=== PATIENT | male | born 1930 | race Caucasian/White ===

== ENCOUNTER 2019-02-06 20:41 | Observation (INO) | payer BC, MEDICARE ==
[2019-02-06] MEDS ORDERED: TOPICAL LIDOCAINE W/ EPI 5 ML TOP ONE (20:59)
--- NOTE | 2019-02-06 21:02 | Emergency Department Record ---
History of Present Illness - General Chief Complaint: Fall Injury Stated Complaint: FALL INJURY Time Seen by Provider: 02/06/19 20:59 Source: Patient, Family Mode of Arrival: Ambulatory Limitations: No limitations - History of Present Illness Initial Comments: 88 yo male presents after a fall in his home. No syncope or LOC. He presents with a frontal forehead laceration. He is not on any blood thinners. His son reports the patient lives alone. He has chronic balance issues with other falls. No other recent confusion, vomiting, diarrhea, confusion, weight changes. His PCP is in [place]. In the fall he was admitted and then spent time in rehabilitation then an assisted living but he is back home. MD Complaint: Fall -: Minutes(s) Fall From: Standing When Fall Occurred: Just prior to arrival Fall Witnessed: No Place Fall Occurred: Home Loss of Consciousness: None Prolonged Down Time?: No Symptoms Prior to Fall: None Location: Head Severity: Mild Quality: Aching Context: Other Associated Symptoms: Denies - [place] Coma Scale Eye Response: (4) Open spontaneously Motor Response: (6) Obeys commands Verbal Response: (5) Oriented Kimberly Total: 15 - Related Data Home Medications Medication Instructions Recorded Confirmed Last Taken Clopidogrel Bisulfate [Clopidogrel] 75 mg PO DAILY 02/06/19 02/06/19 Unknown Metoprolol Succinate [Toprol Xl] 25 mg PO DAILY 02/06/19 02/06/19 Unknown Omeprazole [Prilosec] 20 mg PO BID 02/06/19 02/06/19 Unknown Oxybutynin Chloride [Ditropan] 5 mg PO DAILY 02/06/19 02/06/19 Unknown Silodosin 1 cap PO DAILY 02/06/19 02/06/19 Unknown Tiotropium [place] [Spiriva] 1 inh IH DAILY 02/06/19 02/06/19 Unknown Allergies Allergy/AdvReac Type Severity Reaction Status Date / Time No Known Drug Allergies Allergy Verified 02/06/19 21:11 Review of Systems Constitutional: Denies: Chills, Fever, Malaise, Weakness Eyes: Denies: Eye discharge ENT: Denies: Congestion, Throat pain Respiratory: Denies: Cough, Dyspnea Cardiovascular: Denies: Chest pain, Palpitations, Syncope Endocrine: Denies: Fatigue Gastrointestinal: Denies: Abdominal pain, Diarrhea, Nausea, Vomiting Genitourinary: Denies: Dysuria, Frequency, Hematuria Musculoskeletal: Denies: Arthralgia, Back pain, Joint swelling, Myalgia Skin: Reports: Other. Denies: Bruising, Change in color, Rash Neurological: Denies: Headache, Numbness, Vertigo, Weakness Psychiatric: Denies: Anxiety Hematological/Lymphatic: Denies: Easy bleeding, Easy bruising Physical Exam - General General Appearance: Alert, Oriented x3, Cooperative, No acute distress Limitations: No limitations - Head Head exam: negative: Atraumatic, Normal inspection Head exam detail: Contusion, Laceration Image of Face/Head: 1 - 2cm laceration - Eye Eye exam: Normal appearance, PERRL. negative: Conjunctival injection, Scleral icterus - ENT ENT exam: Normal exam Ear exam: Normal external inspection Nasal Exam: Normal inspection Mouth exam: Normal external inspection - Neck Neck exam: Normal inspection, Full ROM. negative: Tenderness - Respiratory Respiratory exam: Normal lung sounds bilaterally. negative: Accessory muscle use, Chest wall tenderness, Decreased breath sounds, Respiratory distress - Cardiovascular Cardiovascular Exam: Regular rate, Normal rhythm, Normal heart sounds Peripheral Pulses: 2+: Radial (R), Radial (L) - GI/Abdominal GI/Abdominal exam: Soft, Normal bowel sounds. negative: Tenderness - Rectal Rectal exam: Deferred - exam: Deferred - Extremities Extremities exam: Normal inspection, Full ROM, Normal capillary refill. nega tive: Tenderness - Back Back exam: Reports: Full ROM. Denies: CVA tenderness (R), CVA tenderness (L), Muscle spasm, Tenderness, Vertebral tenderness - Neurological Neurological exam: Alert, CN II-XII intact, Oriented X3. negative: Altered, Motor sensory deficit - Psychiatric Psychiatric exam: Normal affect, Normal mood. negative: Agitated, Anxious - Skin Skin exam: Normal color, Warm. negative: Intact Type of lesion: abrasion, Laceration Course Vital Signs 02/06/19 20:43 Temperature 97.6 F Pulse Rate [ 73 Pulse Ox Probe] Respiratory 20 Rate Blood Pressure 176/74 [Left Arm] Pulse Ox 93 L - Reevaluation(s) Reevaluation #1: 02/06/19 21:[address] scanner is not operational The patient will be transported for CT scans at [facility] It was discovered he is on Plavix Trauma Alert activated. Procedure: 2.5 cm laceration of the forehead Wound was cleaned and prepped in sterile fashion, no residual FB identified on examination. The wound was copiously irrigated with NS Wound was anesthetized with 3 mL of 1% Lidocaine with epinephrine The laceration was repaired with 6 sutures in interrupted fashion. Prolene 5-0. Patient tolerated the procedure well without complications. We discussed home care, reasons for immediate return if any concerns, and suture removal in 7 days 02/06/19 22:01 [facility] called again for transfer for HCT 02/07/19 00:30 The patient has returned from [facility] He was rechecked. No changes in his clinical condition. Alert [facility] radiology was contacted to obtain the report of the CT scans as they were not sent with the patient 02/07/19 00:40 The patient is a fall risk and I recommend observation after his fall on plavix with a head injury The patient and son are in agreement at this time PT will be consulted as well 02/07/19 01:18 Medical Decision Making - Lab Data Result diagrams: 02/06/19 21:42 02/06/19 21:42 Disposition Disposition: Admit Clinical Impression: Falls frequently, Renal insufficiency Scalp laceration Qualifiers: Encounter type: initial encounter Qualified Code(s): S01.01XA - Laceration without foreign body of scalp, initial encounter Head injury Qualifiers: Encounter type: initial encounter Qualified Code(s): S09.90XA - Unspecified injury of head, initial encounter Disposition: Still a Patient at [facility] Decision to Admit: Admit from ER Decision to Admit Date: 02/07/19 Decision to Admit Time: 00:41 Condition: (2) Stable Forms: Patient Portal Access Time of Disposition: 00:41 Quality - Quality Measures Quality Measures: N/A - Blood Pressure Screening Does Patient Have Any of the Following: Active Dx of HTN Blood Pressure Classification: Hypertensive Reading Systolic Measurement: 176 Diastolic Measurement: 74 Screening for High Blood Pressure: Patient Exclusion, Hx of HTN [[id number]]
[2019-02-06 21:49] LABS: ABSOLUTE NEUTROPHIL COUNT 3.02; BASO % 0.4 % (0-6); EOS % 6.3 % (0-6); GRAN % 61.1 % (47-80); HEMATOCRIT 41.1 % (42.0-52.0); HEMOGLOBIN 13.7 gm/dl (14.0-18.0); LYMPH % 24.3 % (16-45); MEAN CELL VOLUME 94.3 fl (81-97); MEAN CORPUSCULAR HEMOGLOBIN 31.4 pg (27-33); MEAN CORPUSCULAR HGB CONC 33.3 g/dl (32-36); MEAN PLATELET VOLUME 9.4 fl (7.4-10.4); MONO % 7.9 % (0-9); PLATELET COUNT 153 K/uL (130-400); RED BLOOD COUNT 4.36 M/uL (4.40-5.70); RED CELL DISTRIBUTION WIDTH 14.2 % (11.5-14.5); WHITE BLOOD COUNT W/O DIFF 4.9 K/uL (4.2-12.2)
[2019-02-06 22:02] LABS: CREATININE 1.5 mg/dL (0.7-1.2); INR 1.1; PARTIAL THROMBOPLASTIN TIME 27.8 SECONDS (24.5-39.1); PROTHROMBIN TIME (PATIENT) 10.9 SECONDS (9.5-12.1)
[2019-02-07 00:34] LABS: URINE BILIRUBIN NEGATIVE (NEGATIVE); URINE BLOOD NEGATIVE (NEGATIVE); URINE GLUCOSE (UA) NEGATIVE (NEGATIVE); URINE KETONE NEGATIVE (NEGATIVE); URINE LEUKOCYTE ESTERASE NEGATIVE (NEGATIVE); URINE NITRITE NEGATIVE (NEGATIVE); URINE PROTEIN TRACE (NEGATIVE); URINE UROBILINOGEN 0.2 E.U./dL (0.20 - 1.00)
[2019-02-07 00:35] LABS: URINE APPEARANCE CLEAR; URINE COLOR YELLOW
[2019-02-07] MEDS ORDERED: Diph,Pert(Acell),Tet Vac 0.5 ML SYR IM ONE (01:18)
[2019-02-07] MEDS ORDERED: ACETAMINOPHEN 500 MG TABLET PO PRN (01:32)
[2019-02-07] MEDS ORDERED: 0.9 % SODIUM CHLORIDE 1000ML 1,000 ML IV PRN (01:32)
[2019-02-07] MEDS ORDERED: PANTOPRAZOLE SODIUM 40 MG TABLET PO SCH (07:00)
--- NOTE | 2019-02-07 09:01 | History & Physical ---
History of Present Illness - Date of Service Date of Service for History & Physical: 02/07/19 - History of Present Illness Admitting Diagnosis: Falls, Fall on Plavix, Weak, renal insufficiency, Head Injury History of Present Illness: Mr. Marques is a 88 y/o male with presentation after a fall at home. The patient says that he was getting up from his recliner and was reaching for his walker but he felt weak in the legs and fell forward hitting his head. He says he has fallen a few times at home and was most recently in rehab but wanted to go home. He says that he lives alone and does almost everything for himself. He says he has three sons who live nearby and help him with some things. The patient had a laceration of the forehead over the right eye but did not sustain any other injury after falling. CT head w/o contrast did not reveal any acute intracranial injury. Labs were within normal limits. He is admitted for neurochecks and evaluation by physical and occupational therapy. Travel Screening - Travel/Exposure Within Last 30 Days Have you traveled within the last 30 days?: No - Travel/Exposure Within Last Year Have you traveled outside the [place] in the last year?: No - Additonal Travel Details Have you been exposed to anyone with a communicable illness?: No - Travel Symptoms Symptom Screening: None Review of Systems Constitutional: Denies: Chills, Fever, Malaise, Weakness Eyes: Denies: Eye discharge ENT: Denies: Congestion, Throat pain Respiratory: Denies: Cough, Dyspnea Cardiovascular: Denies: Chest pain, Palpitations, Syncope Endocrine: Denies: Fatigue Gastrointestinal: Denies: Abdominal pain, Diarrhea, Nausea, Vomiting Genitourinary: Denies: Dysuria, Frequency, Hematuria Musculoskeletal: Denies: Arthralgia, Back pain, Joint swelling, Myalgia Skin: Reports: Other. Denies: Bruising, Change in color, Rash Neurological: Denies: Headache, Numbness, Vertigo, Weakness Psychiatric: Denies: Anxiety Hematological/Lymphatic: Denies: Easy bleeding, Easy bruising Past Medical History - SOCIAL HISTORY Smoking Status: Former smoker Alcohol Use: None Drug Use: None - RESPIRATORY Hx Respiratory Disorders: Yes Hx COPD: Yes - CARDIOVASCULAR Hx Cardio Disorders: Yes Hx Hypertension: Yes Comment:: PVD - NEURO Hx Neuro Disorders: Yes Hx Dizziness: Yes Comment:: Balance problems - GI Hx GI Disorders: Yes Hx Obstructive Bowel: Yes - Hx Genitourinary Disorders: Yes Hx Bladder Problem: Yes - ENDOCRINE Hx Endocrine Disorders: No - MUSCULOSKELETAL Hx Musculoskeletal Disorders: Yes Hx Arthritis: Yes - PSYCH Hx Psych Problems: No - HEMATOLOGY/ONCOLOGY Hx Hematology/Oncology Disorders: No Family Medical History Any Significant Family History?: Yes Hx Dementia: Brother/Sister H&P Meds/Allergies - Allergies Allergies: Allergies Allergy/AdvReac Type Severity Reaction Status Date / Time No Known Drug Allergies Allergy Verified 02/06/19 21:11 - Home Medications Home Medications Medication Instructions Recorded Confirmed Last Taken Clopidogrel Bisulfate [Clopidogrel] 75 mg PO DAILY 02/06/19 02/06/19 Unknown Metoprolol Succinate [Toprol Xl] 25 mg PO DAILY 02/06/19 02/06/19 Unknown Omeprazole [Prilosec] 20 mg PO BID 02/06/19 02/06/19 Unknown Oxybutynin Chloride [Ditropan] 5 mg PO DAILY 02/06/19 02/06/19 Unknown Silodosin 1 cap PO DAILY 02/06/19 02/06/19 Unknown Tiotropium [place] [Spiriva] 1 inh IH DAILY 02/06/19 02/06/19 Unknown - Active Medications Active Medications: Current Medications Acetaminophen (Tylenol 500mg Tab) 1,000 mg PO Q6H PRN PRN Reason: PAIN - MILD(1-4)/FEVER Sodium Chloride () 1,000 mls @ 100 mls/hr IV .Q10H PRN PRN Reason: LARGE VOLUME IV Last Admin: 02/07/19 02:14 Dose: 100 mls/hr Documented by: Metoprolol Succinate (Toprol Xl) 12.5 mg PO DAILY [place] Non-Formulary Misc (Silodosin [Rapaflo ] 1 Cap) 1 cap PO DAILY [place] Oxybutynin Chloride (Ditropan) 5 mg PO QHS [place] Pantoprazole Sodium (Protonix) 40 mg PO BIDAC [place] Last Admin: 02/07/19 06:19 Dose: 40 mg Documented by: Physical Exam - Vital Signs Vital Signs: Vital Signs - Last 24 Hrs Temp Pulse Pulse Resp BP BP Pulse Ox 02/07/19 08:00 97.5 F L 68 17 166/65 96 02/07/19 01:32 97.6 F 90 16 157/83 96 02/07/19 01:30 97.5 F L 73 18 173/82 96 02/06/19 20:43 97.6 F 73 20 176/74 93 L - General General Appearance: Alert, Oriented x3, Cooperative, No acute distress Limitations: No limitations - Head Head exam: negative: Atraumatic, Normal inspection Head exam detail: Contusion, Laceration - Eye Eye exam: Normal appearance, PERRL. negative: Conjunctival injection, Scleral icterus - ENT ENT exam: Normal exam Ear exam: Normal external inspection Nasal Exam: Normal inspection Mouth exam: Normal external inspection - Neck Neck exam: Normal inspection, Full ROM. negative: Tenderness - Respiratory Respiratory exam: Normal lung sounds bilaterally. negative: Accessory muscle use, Chest wall tenderness, Decreased breath sounds, Respiratory distress - Cardiovascular Cardiovascular Exam: Regular rate, Normal rhythm, Normal heart sounds Peripheral Pulses: 2+: Radial (R), Radial (L) - GI/Abdominal GI/Abdominal exam: Soft, Normal bowel sounds. negative: Tenderness - Rectal Rectal exam: Deferred - exam: Deferred - Extremities Extremities exam: Normal inspection, Full ROM, Normal capillary refill. negative: Tenderness - Back Back exam: Reports: Full ROM. Denies: CVA tenderness (R), CVA tenderness (L), Muscle spasm, Tenderness, Vertebral tenderness - Neurological Neurological exam: Alert, CN II-XII intact, Oriented X3. negative: Altered, Motor sensory deficit - Psychiatric Psychiatric exam: Normal affect, Normal mood. negative: Agitated, Anxious - Skin Skin exam: Normal color, Warm. negative: Intact Type of lesion: abrasion, Laceration Results - Labs Result Diagrams: 02/06/19 21:42 02/06/19 21:42 Labs Last 24 Hours: Laboratory Results - last 24 hr 02/06/19 02/06/19 02/06/19 21:42 21:42 21:42 WBC 4.9 RBC 4.36 L Hgb 13.7 L Hct 41.1 L MCV 94.3 MCH 31.4 MCHC 33.3 RDW 14.2 Plt Count 153 MPV 9.4 Gran % 61.1 Lymphocytes % 24.3 Monocytes % 7.9 Eosinophils % 6.3 H Basophils % 0.4 Absolute Neutrophils 3.02 PT 10.9 INR 1.1 APTT 27.8 Sodium 138 Potassium 4.7 H Chloride 104 Carbon Dioxide 22.0 Anion Gap 12.0 BUN 39 H Creatinine 1.5 H Estimated GFR 47 Random Glucose 134 H Calcium 9.1 Urine Color Urine Appearance Urine pH Ur Specific [place] Urine Protein Urine Glucose (UA) Urine Ketones Urine Blood Urine Nitrite Urine Bilirubin Urine Urobilinogen Ur Leukocyte Esterase Ethyl Alcohol 0.000 02/07/19 00:30 WBC RBC Hgb Hct MCV MCH MCHC RDW Plt Count MPV Gran % Lymphocytes % Monocytes % Eosinophils % Basophils % Absolute Neutrophils PT INR APTT Sodium Potassium Chloride Carbon Dioxide Anion Gap BUN Creatinine Estimated GFR Random Glucose Calcium Urine Color Yellow Urine Appearance Clear Urine pH 6.0 Ur Specific [place] 1.010 Urine Protein Trace H Urine Glucose (UA) Negative Urine Ketones Negative Urine Blood Negative Urine Nitrite Negative Urine Bilirubin Negative Urine Urobilinogen 0.2 Ur Leukocyte Esterase Negative Ethyl Alcohol VTE H&P Assessment - Risk for VTE Risk for VTE: Yes Risk Level: Moderate Risk Assessment Date: 02/07/19 Risk Assessment Time: 09:02 VTE Orders Placed or Will Be Placed: Yes Plan - Detailed Diagnosis and Plan (1) Falls frequently Current Visit: Yes Status: Acute Base Code: R29.6 - REPEATED FALLS Comment: 02/07/19: - Mechanical fall at home 2/2 weakness/gait instability. - Ambulates with walker at home. - PT/OT consult pending. - Fall precuations with bed alarm. (2) Head injury Current Visit: Yes Status: Acute Qualifiers: Encounter type: initial encounter Qualified Code(s): S09.90XA - Unspecified injury of head, initial encounter Base Code: S09.90XA - UNSPECIFIED INJURY OF HEAD, INITIAL ENCOUNTER Comment: 02/07/19: - Supericial head injury 2/2 to fall. - CT head w/o contrast: negative for acute intracranial pathology. - 6 stitches placed over laceration. (3) Renal insufficiency Current Visit: Yes Status: Acute Base Code: N28.9 - DISORDER OF KIDNEY AND URETER, UNSPECIFIED Comment: 02/07/19: - Bun/Cr, 39/1.5 GFR: 47 - Baseline not known. - Follow up with outpatient labs. (4) Hypertension Current Visit: Yes Status: Acute Base Code: I10 - ESSENTIAL (PRIMARY) HYPERTENSION Comment: 02/07/19: - Not well controlled. - Resume Metoprolol 12.5mg QD. (5) BPH (benign prostatic hyperplasia) Current Visit: Yes Status: Acute Base Code: N40.0 - BENIGN PROSTATIC HYPERPLASIA WITHOUT LOWER URINRY TRACT SYMP Comment: 02/07/19: - Resume Silodosin and Oxybutinin. (6) DVT prophylaxis Current Visit: Yes Status: Acute Base Code: Z29.9 - ENCOUNTER FOR PROPHYLACTIC MEASURES, UNSPECIFIED Comment: 02/07/19: - Ambulation and SCDs while in bed. - Hold Lovenox due to risk of falls. (7) Full code status Current Visit: Yes Status: Acute Base Code: Z78.9 - OTHER SPECIFIED HEALTH STATUS Comment: 02/07/19: - Pt is full code.
--- NOTE | 2019-02-07 09:46 | Rehab Evaluation ---
Patient Information - Patient Information Diagnosis: Falls, Falls on Plavix, Weak, Renal Insufficiency, Head Injury Ordered Treatment: PT Evaluate and Treat Status: Initial Evaluation Surgery: No Past Medical/Surgical Hx: PAST MEDICAL/SURGICAL HISTORY Past Surgical History R hip replacement; Bowel surgery for blockage; Prostate surgery PMH - Respiratory Hx Respiratory Disorders Yes Hx Chronic Obstructive Yes Pulmonary Disease (COPD) PMH - Cardiovascular Hx Cardiovascular Disorders Yes Hx Hypertension Yes Comment: PVD PMH - Neuro Hx Neurological Disorders Yes Hx Dizziness Yes Comment: Balance problems PMH - GI Hx Gastrointestinal Disorders Yes Hx Obstructive Bowel Yes PMH - Hx Genitourinary Disorders Yes Hx Bladder Problem Yes PMH - Endocrine Hx Endocrine Disorders No PMH - Musculoskeletal Hx Musculoskeletal Disorders Yes Hx Arthritis Yes PMH - Psych Hx Psychiatric Problems No PMH - Hematology/Oncology Hx Hematology/Oncology No Disorders Premorbid Status: Detail (Patient reports that he has not been driving for years. Patient also reports that he has a 2-wheeled walker and rollator at home that he regularly uses. Patient reports that he uses oxygen for long walking distances, but does not frequently need to use it.) Social History: Detail (Patient lives alone in one story home. Patient reports that he only has 1 step to enter the home with bilateral grab bars. Patient reports that he does have a basement but has not used it for years in fear of falling. Patient reports that he has a walk in shower with grab bars. Patient also reports that he has a raised toilet seat with grab bars. At home patient reports that he is independent with ADL's such as laundry, dishes, and mowing the lawn. Patient did state that he receives meals on wheels and has a house keeper visit every 2 weeks to help with the home. His sons frequently visit throughout the day and visit in the morning and afternoon.) - Time With Patient Total Time Spent With Patient (Min): 35 Treatment Procedures: Detail (Initial evaluation; low complexity) Subjective Information - Subjective Information Per Patient (Patient did not report any pain. After ambulating in the hallways patient reported feeling lightheaded.) Objective Data - Mental Status Patient Orientation: Oriented x3 - ROM Not within normal limits (Patient's upper extremities and lower extremities were assessed. Patient showed decreased active range of motion in shoulder flexion and abduction, lacking approximately 30 degrees. Passively patient was assessed and was determined to have a firm end-feel indicating possible muscular tightness preventing full range.) - Strength/Tone Not within normal limits (Patient's upper and lower extremities were assessed with manual muscle testing. 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 In lower extremities, patient was determined to have 4/5 strength in right hip flexion, 4/5 strength in bilateral hip adduction, and 3+/5 strength in right great toe extension.) - Coordination Deficit (Patient's upper extremity finger dexterity was assessed and was found to have difficulty bringing 3rd and 4th finger to thumb.) - Bed Mobility Independent (Patient was assessed in transfering from supine to R EOB and back. Patient required use of hospital grab bars but was able to complete transfer with supervision x1.) - Transfers Dependent (Patient completed sit to stand transfer from R EOB using 2-wheeled walker for support with minimal assistance x1. Patient required multiple attempts prior to completing transfer. When transfering from standing to sitting R EOB, patient used 2-wheeled walker for support and required minimal assistance x1 for guidance of descent due to patient showing decreased ability to e ccentrically control movement.) - Balance Balance Standing: Poor (Patient demonstrates increased posterior lean and increased weight bearing through heels rather than distributing throughout the whole foot. Patient was assessed using Tinetti Balance Assessment Tool. Patient scored 2/16 in the balance section and scored a 0 in the sections of sit to stand requiring help, unsteady with immediate standing, inability to maintain balance with anterior and lateral perturbations with falling posteriorly, unable to stand with eyes closed for 10 seconds, sitting down unsafely. Patient was not assessed turning 360 degrees due to it being deemed unsafe. Patient was scored 6/12 in gait section and scored 0 for step length and height, increased trunk sway, and walking with heels apart. Overall score was determined to be 8/28 indicating that patient is at high risk for falls.) - Sensation Deficit (Patient indicated deficit of sensation on medial and lateral mcpherson, lateral and dorsal aspect of foot, and dorsal aspect of toes. 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 Patient demonstrated increased weight bearing through the heels and did not fully complete toe-push off during pre-swing phase of gait. Patient demonstrated increased posterior lean throughout ambulation and increased shortness of breath with significant wheezing throughout ambulation. Upon return to room patient was instructed on pursed-lip breathing with deeper breaths.) Therapy Assessment - Therapy Assessment Detail (Patient was assessed for bed mobility and required supervision assistance only. During sit to stand transfers patient required minimal assistance x1. Patient ambulated total of 80 feet using 2-wheeled walker with CGAx1 and demonstrated increased weight bearing on heels without push off on great toe during pre-swing phase of ambulation. Patient demonstrated significant shortness of breath and wheezing throughout ambulation and reported that he felt lightheaded after ambulation. Patient then was assessed strength tyler and was found to have impairments in strength of bilateral graip, hip adduction, hip f lexion, and great toe extension. Patient also demonstrated impairment in range of motion of shoulder flexion and abduction. Sensation was also found to have significant impairments in right lower extremity along superficial and deep peroneal nerves, sural nerve, and saphenous peripheral nerves. Patient was assessed using Tinetti Balance Assessment tool and was scored 8/28, indicating that patient is at significant risk for falls in the future. Patient would benefit from inpatient rehab physical therapy focusing on improving strength, balance, transfers, and bed mobility. Home physical therapy is recommended following discharge.) Problem List - Problem List Physical Therapy Problem List: Detail (1. Decreased strength impacting patient's ability to perform ADL's and increasing potential fall risk. 2. Decreased range of motion in upper extremities indicating difficulty to perform ADL's 3. Altered gait pattern due to decreased sensation impacting potential fall risk. 4. Decreased standing balance leading to potential fall risk.) Goals - Goals Physical Therapy Goals: 1. Patient will ambulate total distance of 150 feet using 2-wheeled walker with SBAx1 for safety to help aide in patient's independence. 2. Patient will improve in at least 4 pts in the Tinetti to indicate a clinical significant difference to demonstrate improvement in standing balance to help decrease risk in potential falls. 3. Patient will complete sit to stand transfer using 2-wheeled walker for support with supervision assistance to help progress patient towards independence for ADL's. Prognosis - Prognosis Moderate (Patient has significant balance issues that if addressed will help decrease his potential risk for falls.) Plan - Plan Physical Therapy Plan: PT 1-2x a day Sunday-Sunday focusing on improvement of strength, range of motion, gait training, neuromuscular re-education, and balance training.
[2019-02-07] MEDS ORDERED: UMECLIDINIUM BROMIDE (INCRUSE) 62.5MCG IH SCH (10:00)
[2019-02-07] MEDS ORDERED: METOPROLOL SUCC 25 MG TAB.ER PO SCH (10:00)
[2019-02-07] MEDS ORDERED: SILODOSIN PO SCH (10:00)
--- NOTE | 2019-02-07 13:06 | Discharge Summary ---
Providers Discharge Summary Date: 02/07/19 Date of admission: 02/07/19 01:25 Attending physician: MONY RAYMOND Primary care physician: LEONARD DUENAS M.D. Physical Exam - Vital Signs Vital Signs: Vital Signs - Last 24 Hrs Temp Pulse Pulse Resp BP BP Pulse Ox 02/07/19 09:00 18 02/07/19 08:00 97.5 F L 68 17 166/65 96 02/07/19 01:32 97.6 F 90 16 157/83 96 02/07/19 01:30 97.5 F L 73 18 173/82 96 02/06/19 20:43 97.6 F 73 20 176/74 93 L - General General Appearance: Alert, Oriented x3, Cooperative, No acute distress Limitations: No limitations - Head Head exam: negative: Atraumatic, Normal inspection Head exam detail: Contusion, Laceration - Eye Eye exam: Normal appearance, PERRL. negative: Conjunctival injection, Scleral icterus - ENT ENT exam: Normal exam Ear exam: Normal external inspection Nasal Exam: Normal inspection Mouth exam: Normal external inspection - Neck Neck exam: Normal inspection, Full ROM. negative: Tenderness - Respiratory Respiratory exam: Normal lung sounds bilaterally. negative: Accessory muscle use, Chest wall tenderness, Decreased breath sounds, Respiratory distress - Cardiovascular Cardiovascular Exam: Regular rate, Normal rhythm, Normal heart sounds Peripheral Pulses: 2+: Radial (R), Radial (L) - GI/Abdominal GI/Abdominal exam: Soft, Normal bowel sounds. negative: Tenderness - Rectal Rectal exam: Deferred - exam: Deferred - Extremities Extremities exam: Normal inspection, Full ROM, Normal capillary refill. negative: Tenderness - Back Back exam: Reports: Full ROM. Denies: CVA tenderness (R), CVA tenderness (L), Muscle spasm, Tenderness, Vertebral tenderness - Neurological Neurological exam: Alert, CN II-XII intact, Oriented X3. negative: Altered, Motor sensory deficit - Psychiatric Psychiatric exam: Normal affect, Normal mood. negative: Agitated, Anxious - Skin Skin exam: Normal color, Warm. negative: Intact Type of lesion: abrasion, Laceration Hospitalization - Hospitalization Admission Diagnosis: Falls, Fall on Plavix, Weak, renal insufficiency, Head Injury - Problem List/Discharge Diagnosis (1) Falls frequently Current Visit: Yes Status: Acute Base Code: R29.6 - REPEATED FALLS Comment: 02/07/19: - Mechanical fall at home 2/2 weakness/gait instability. - Ambulates with walker at home. - PT/OT recommends home therapy to help with ambulation/transfers. - SW to follow up to arrange home PT/OT. - Fall precuations with bed alarm. (2) Head injury Current Visit: Yes Status: Acute Discharge Diagnosis: Encounter type: initial encounter Qualified Code(s): S09.90XA - Unspecified injury of head, initial encounter Base Code: S09.90XA - UNSPECIFIED INJURY OF HEAD, INITIAL ENCOUNTER Comment: 02/07/19: - Supericial head injury 2/2 to fall. - CT head w/o contrast: negative for acute intracranial pathology. - 6 stitches placed over laceration. (3) Renal insufficiency Current Visit: Yes Status: Acute Base Code: N28.9 - DISORDER OF KIDNEY AND URETER, UNSPECIFIED Comment: 02/07/19: - Bun/Cr, 39/1.5 GFR: 47 - Baseline not known. - Follow up with outpatient labs. (4) Hypertension Current Visit: Yes Status: Acute Base Code: I10 - ESSENTIAL (PRIMARY) HYPERTENSION Comment: 02/07/19: - Not well controlled. - Resume Metoprolol 12.5mg QD. (5) BPH (benign prostatic hyperplasia) Current Visit: Yes Status: Acute Base Code: N40.0 - BENIGN PROSTATIC HYPERPLASIA WITHOUT LOWER URINRY TRACT SYMP Comment: 02/07/19: - Resume Silodosin and Oxybutinin. (6) DVT prophylaxis Current Visit: Yes Status: Acute Base Code: Z29.9 - ENCOUNTER FOR PROPHYLACTIC MEASURES, UNSPECIFIED Comment: 02/07/19: - Ambulation and SCDs while in bed. - Hold Lovenox due to risk of falls. (7) Full code status Current Visit: Yes Status: Acute Base Code: Z78.9 - OTHER SPECIFIED HEALTH STATUS Comment: 02/07/19: - Pt is full code. - Hospitalization Course Abnormal Labs: Abnormal Lab Results 02/06/19 02/06/19 02/07/19 Range/Units 21:42 21:42 00:30 RBC 4.36 L (4.40-5.70) M/uL Hgb 13.7 L (14.0-18.0) gm/dl Hct 41.1 L (42.0-52.0) % Eosinophils % 6.3 H (0-6) % Potassium 4.7 H (3.4-4.5) mmol/L BUN 39 H (8-23) mg/dL Creatinine 1.5 H (0.7-1.2) mg/dL Random Glucose 134 H (74-109) mg/dL Urine Protein Trace H (NEGATIVE) Condition at Discharge: (2) Stable Discharge Medications - Discharge Medications Home Medications: Ambulatory Orders Clopidogrel Bisulfate [Clopidogrel] 75 mg PO DAILY 02/06/19 [Last Taken Unknown] Metoprolol Succinate [Toprol Xl] 25 mg PO DAILY 02/06/19 [Last Taken Unknown] Omeprazole [Prilosec] 20 mg PO BID 02/06/19 [Last Taken Unknown] Oxybutynin Chloride [Ditropan] 5 mg PO DAILY 02/06/19 [Last Taken Unknown] Silodosin 1 cap PO DAILY 02/06/19 [Last Taken Unknown] Tiotropium [place] [Spiriva] 1 inh IH DAILY 02/06/19 [Last Taken Unknown] Discharge Plan - Discharge Instructions Diet at Discharge: Regular Diet, Low Salt Diet Additional Instructions: Appointment has been scheduled with Glory Stuart NP at Dr. Yfn Tena's office on February 21 at 1:30PM for hospital follow up. Office phone# is [phone] and is located at [address] [place] [address] in [facility] will see you at home to begin physical therapy. They are available 09/04 by phone at [phone]. Quality Measures - Quality Measures Quality Measures: Advance Directives, Documentation of Current Medications in Medical Record, Elder Maltreatment Screen and Follow-Up Plan, Screening for High Blood Pressure and F/U Documented - Current Medications Quality Measure: Measure #130: Documentation of Current Medications Documentation of Current Medications: <Current Medications Documented/Reviewed> [G8427] - Blood Pressure Screening Quality Measure: Screening for High Blood Pressure and Follow-Up Documented Does Patient Have Any of the Following: Active Dx of HTN Blood Pressure Classification: Pre-Hypertensive BP Reading Systolic Measurement: 157 Diastolic Measurement: 83 Screening for High Blood Pressure: Patient Exclusion, Hx of HTN [G9744] - Advance Directives Quality Measure: Measure #47: Care Plan Advance Directives Established: No Advance Directives Information Provided To Patient: Already Provided Advance Directives on File: No Living Will: No Advance Care Planning: <Care Plan/Decision Maker Documented; Discussed & Documented> [1123F] - Elder Abuse Suspicion Index Screening: Elder Abuse Suspicion Index Screening Rely on people for bathing, dressing, shopping, banking, etc: Yes Prevented from getting food, clothes, medication, etc: No Made to feel shamed or threatened by someone: No Forced to sign papers or use money against will: No Feel afraid, touched in ways not wanted or hurt physically: No Poor eye contact, withdrawn, malnourished, cuts or bruises: No Screening Result: Negative result EASI Reference Information: Juan Carlos CASSIDY, Wilberto C, Ke D, Nico Brewer.Development and validation of a tool to assist physicians identification of elder abuse: The Elder Abuse Suspicion Index (EASI ). Journal of Elder Abuse and Neglect, 2008; 20 (3): 276-300. - Elder Maltreatment Screen Quality Measures: Elder Maltreatment Screen and Follow-Up Plan Elder Maltreatment Screen: <Negative, No Follow-Up Plan Required> [G6181]
[2019-02-07] MEDS ORDERED: OXYBUTYNIN CHLORIDE 5MG TABLET PO SCH (22:00)
== END 2019-02-07 14:04 | disposition home or self-care (01) ==
LOC: ER 20:41 → MEDSURG 02-07 01:25
PROVIDERS: ADMIT Internal Medicine; ATTEND Internal Medicine
DX: R29.6 Repeated falls (principal); Z79.01 Long term (current) use of anticoagulants; R53.1 Weakness; N28.9 Disorder of kidney and ureter, unspecified; J44.9 Chronic obstructive pulmonary disease, unspecified; I10 Essential (primary) hypertension; I73.9 Peripheral vascular disease, unspecified; N40.0 Benign prostatic hyperplasia without lower urinary tract symptoms; M19.90 Unspecified osteoarthritis, unspecified site; Z87.891 Personal history of nicotine dependence
CPT/HCPCS: 85025; 85730; 85610; 80048; 81003; G0378; G0480; 80320; 90715; 99236; 99285

== ENCOUNTER 2019-02-14 11:42 | Emergency (ER) | payer MEDICARE ==
--- NOTE | 2019-02-14 11:53 | Emergency Department Record ---
History of Present Illness - General Chief Complaint: Suture removal Stated Complaint: SUTURE REMOVAL Time Seen by Provider: 02/14/19 11:44 Source: Patient Mode of arrival: Ambulatory Limitations: No limitations - History of Present Illness Initial Comments: The patient is here for suture removal. He had sutures placed a week ago and has been doing very well. Complaint: Suture/staple removal Onset/Timin - Related Data Allergies Allergy/AdvReac Type Severity Reaction Status Date / Time No Known Drug Allergies Allergy Verified 02/06/19 21:11 Travel Screening - Travel/Exposure Within Last 30 Days Have you traveled within the last 30 days?: No - Travel/Exposure Within Last Year Have you traveled outside the [place] in the last year?: No - Additonal Travel Details Have you been exposed to anyone with a communicable illness?: No Review of Systems Constitutional: Denies: Chills, Fever Past Medical History - SOCIAL HISTORY Smoking Status: Former smoker Alcohol Use: None Drug Use: None - RESPIRATORY Hx Respiratory Disorders: Yes Hx COPD: Yes - CARDIOVASCULAR Hx Cardio Disorders: Yes Hx Hypertension: Yes Comment:: PVD - NEURO Hx Neuro Disorders: Yes Hx Dizziness: Yes Comment:: Balance problems - GI Hx GI Disorders: Yes Hx Obstructive Bowel: Yes - Hx Genitourinary Disorders: Yes Hx Bladder Problem: Yes - ENDOCRINE Hx Endocrine Disorders: No - MUSCULOSKELETAL Hx Musculoskeletal Disorders: Yes Hx Arthritis: Yes - PSYCH Hx Psych Problems: No - HEMATOLOGY/ONCOLOGY Hx Hematology/Oncology Disorders: No Family Medical History Any Significant Family History?: No Hx Dementia: Brother/Sister Physical Exam - General General Appearance: Alert, Cooperative, No acute distress - Head Head exam: Normocephalic (There is a well healed forehead laceration. The 6 sutures were removed without difficulty.). negative: Atraumatic Course Vital Signs 02/14/19 11:44 Temperature 97.6 F Pulse Rate 75 Respiratory 20 Rate Blood Pressure 145/80 Pulse Ox 93 L Disposition Disposition: Discharge Clinical Impression: Visit for suture removal Disposition: Home, Self-Care Condition: (2) Stable Instructions: Stitches Removal (ED) Additional Instructions: Return to the ER for any problems. Forms: Patient Portal Access Time of Disposition: 11:53 Quality - Quality Measures Quality Measures: Blunt Head Trauma (>2yr) - Blunt Head Trauma - Adult Quality Measure: Measure #415: Utilization of CT for Minor Blunt Head Trauma ICD10 Codes Entered: Yes View Details: Yes Was CT ordered: No Kimberly Score: Please complete Kimberly Coma Scale above Utilization of CT for Minor Blunt Head Trauma: Not Eligible For Measure Additional Inclusion Criteria: More than 24hrs (OR) GCS not 15 (OR) CT not ordered. Not Eligible Reason: CT Not Ordered - Blood Pressure Screening View Details: Yes Does Patient Have Any of the Following: No Blood Pressure Classification: Pre-Hypertensive BP Reading Systolic Measurement: 145 Diastolic Measurement: 80 Screening for High Blood Pressure: < Pre-Hypertensive BP, F/U Documented > [G8950] Pre-Hypertensive Follow-up Interventions: Referral to alternative/primary care provider.
== END 2019-02-14 11:56 | disposition home or self-care (01) ==
LOC: ER 11:42
DX: Z48.02 Encounter for removal of sutures (principal)